=== PATIENT | female | born 1960 | race Two or more races ===

== ENCOUNTER 2018-11-08 11:29 | Day surgery (SDC) | payer OTHER ==
[2018-11-08] MEDS ORDERED: METF850T8 PO (12:15)
[2018-11-08] MEDS ORDERED: ATOR20TA58 PO (12:15)
[2018-11-08] MEDS ORDERED: CALC500T54 PO (12:19)
[2018-11-08] MEDS ORDERED: CHOL100013 PO (12:20)
[2018-11-08] MEDS ORDERED: IV RINGERS,LACTATED 1000ML 1,000 ML IV SCH (12:45)
[2018-11-08] MEDS ORDERED: miSOPROStol 200 MCG TABLET ONE ×5 (13:21→13:22)
[2018-11-08] MEDS ORDERED: OXYTOCIN 10 UNIT/ML VIAL. ONE (13:22)
[2018-11-08] MEDS ORDERED: LIDOCAINE 2% PF 5 ML VIAL. ONE (13:43)
[2018-11-08] MEDS ORDERED: fentaNYL PF VIAL 100 MCG/2 ML VIAL ONE (13:43)
[2018-11-08] MEDS ORDERED: PROPOFOL 20 ML IV ONE (13:43)
[2018-11-08] MEDS ORDERED: ONDANSETRON PF 4 MG/2 ML VIAL. ONE (13:43)
[2018-11-08] MEDS ORDERED: MIDAZOLAM HCL/PF 2 MG/2 ML VIAL. ONE (13:43)
[2018-11-08] MEDS ORDERED: DEXAMETHASONE SOD PHOS 4 MG/ML VIAL ONE (13:43)
[2018-11-08] MEDS ORDERED: SEVOFLURANE 16 TO 30 MINUTES. IH ONE (16:07)
--- NOTE | 2018-11-08 16:19 | PDOC ---
BRIEF OPERATIVE NOTE Date: Nov 08, 2018 Pre-Op Diagnosis AUB PMB Post-Op Diagnosis Same Procedure Performed Dx hysteroscopy with True clear EMB Surgeon Jovanny Anesthesia Type: General Blood Loss 20cc Specimens Obtained EMB Findings Dictated MEGAN RIOS MD Nov 08, 2018 16:19
[2018-11-08] MEDS ORDERED: NAPR-514 PO (16:24)
[2018-11-08] MEDS ORDERED: HYDR-3164 PO (16:24)
[2018-11-08] MEDS ORDERED: HYDROcodone/APAP 5/325MG 1 TAB TABLET PO ONE (16:45)
[2018-11-08 18:15] VITALS: BP 136/62
--- NOTE | 2018-11-08 19:57 | OP ---
DATE OF SURGERY: 11/08/2018 PREOPERATIVE DIAGNOSES: 1. Endometrial polyp. 2. Postmenopausal bleeding. POSTOPERATIVE DIAGNOSES: 1. Endometrial polyp. 2. Postmenopausal bleeding. PROCEDURES: 1. Diagnostic hysteroscopy with a TruClear endometrial sampling. 2. Exam under anesthesia. FINDINGS: Atrophic endometrium with some uterine synechiae. No evidence of polyp. Tunnel created at that time, but dilation appeared normal without any significant bleeding. This was posterior to the cervical canal. SPECIMENS: Endometrial curettings with TruClear. COMPLICATIONS: None. ESTIMATED BLOOD LOSS: 10 mL. FLUIDS: Crystalloids. CONDITION: Stable. DESCRIPTION OF PROCEDURE: After risks, benefits, indication, alternatives, expectations were discussed with the patient, the patient was brought to the OR theater, placed in the dorsal lithotomy position in Adán stirrups. After adequate general anesthesia, the patient was prepped and draped in usual sterile manner. Exam under anesthesia was performed. Uterus was approximately 19 weeks' size, axial. A posterior weighted speculum was placed in the vaginal vault. Cervix was grasped with single tooth tenaculum. The cervix was agglutinated unable to pass the sound. With the use of Metzenbaum scissors, the agglutination cervix was relieved. After some effort, Hegar dilators were able to pass through the cervical canal. Thus, the uterus sounded to 8 cm. The cervix was sounded up to #8 Hegar dilator. The TruClear hysteroscope was passed. There was noted a posterior area of the cervical canal that was a false pathway. Superior to this, the remaining cervical canal was identified and the TruClear device was passed into the uterine cavity. Above findings were noted. The TruClear was used to get biopsies in 4 quadrants of the uterus. There was no abnormal tissue, no polyps, no vascularity appreciated. The procedure was terminated. The TruClear device was removed. A single tooth tenaculum was removed. Puncture sites were hemostatic. The procedure was terminated. Vaginal vault was wiped free of any debris. Sponge, needle and instrument counts were correct x 3 per nursing staff. The patient went to postop anesthesia recovery in stable condition. MEGAN RIOS MD DR: KATY/kendell JOB#: [id number] / [id number]
--- NOTE | 2018-11-10 16:06 | PATHOLOGY ---
[facility] Accession Number: [id number] . 01 Material submitted: . uterus - UTERINE CONTENTS . 02 Diagnosis: Uterine contents, D and C: - Endometrial polyps. (JPM:lito; 11/10/2018) QMS/11/10/2018 . 02 Comment: There is no atypia or evidence of malignancy. (JPM:lito; 11/10/2018) . 02 Electronically signed: . Dagoberto Jimenez MD, Pathologist NPI- [id number] . 01 Gross description: . The specimen is received in formalin, labeled "Oakes, Nicole, uterine contents", is a stockinet bag containing multiple irregular fragments of barbosa to turner soft tissues measuring 1.0 x 1.0 x 0.2 in aggregate. The specimen is entirely submitted in A1. ([facility]; 11/09/2018). SHS/SHS . 02 Pathologist provided ICD-10: N84.0 . 02 CPT . 383460 Specimen Comment: A courtesy copy of this report has been sent to Specimen Comment: [phone]. Specimen Comment: Report sent to [facility]formed at: [facility] [address], [place] [id number] MD Enrique Villagran MD Phone: [phone] Performed at: 02 [facility] [address], [place] [id number] MD Dagoberto Jimenez MD Phone: [phone]
== END 2018-11-08 18:15 | disposition home or self-care (01) ==
LOC: SURG 11:29
PROVIDERS: ATTEND Specialist
DX: N84.0 Polyp of corpus uteri (principal); N95.0 Postmenopausal bleeding; Z79.899 Other long term (current) drug therapy
CPT/HCPCS: 58558; 82962; A7015; J1100; J2001; J2250; J2405; J2704; J3010; J2590